=== PATIENT | female | born 1945 | race Caucasian/White ===

== ENCOUNTER 2020-12-27 13:29 | Emergency (ER) | payer MEDICARE, SELFPAY ==
[2020-12-27 13:44] VITALS: BP 131/73; PULSE 90; RESP 20; TEMP 37.2; O2SAT 98
--- NOTE | 2020-12-27 13:59 | ED.EYEPROB ---
HPI - Eye Problem General Chief complaint: Eye Problems Stated complaint: rt eye Time Seen by Provider: 12/27/20 13:59 Source: patient and RN notes reviewed Mode of arrival: ambulatory Limitations: no limitations History of Present Illness HPI Narrative: 75-year-old female presents to the [facility] with right eye concern. Patient states that she rubbed her eye about 2 hours ago and noticed that there broken capillaries in her eye. Denies any pain. No blurry vision or change in vision. No headaches. Recently changed from 3 mg to 4 mg of Coumadin. Related Data Home Medications Medication Instructions Recorded Confirmed diltiazem HCl 180 mg PO QAM 12/27/20 12/27/20 furosemide 40 mg PO DAILY 12/27/20 12/27/20 glipizide 2.5 mg PO QAM 12/27/20 12/27/20 glipizide 5 mg PO QPM 12/27/20 12/27/20 metoprolol succinate 12.5 mg PO DAILY 12/27/20 12/27/20 omeprazole 40 mg PO BID 12/27/20 12/27/20 primidone 50 mg PO BID 12/27/20 12/27/20 warfarin 4 mg PO DAILY 12/27/20 12/27/20 Allergies Allergy/AdvReac Type Severity Reaction Status Date / Time No Known Allergies Allergy Verified 12/27/20 14:08 Review of Systems Constitutional: Constitutional: Reports as per HPI Eyes: Eyes: Reports as per HPI, Denies change in vision and Denies photophobia Comments: Subconjunctival hemorrhage Denies any trauma ENT: Reports system reviewed and no additional complaints, except as documented Cardiovascular: Cardiovascular: Reports no additional cardiovascular complaints Respiratory: Respiratory: Reports no additional respiratory complaints Gastrointestinal: Gastrointestinal: Reports no additional gastrointestinal complaints Musculoskeletal: Musculoskeletal: Reports no additional musculoskeletal complaints Integumentary/Breasts: Skin/Breast: Reports system reviewed and no additional complaints, except as docu Neurologic: Reports system reviewed and no additional complaints, except as documented Psychiatric: Psychiatric: Reports no additional psychiatric complaints Allergic/Immunologic: Allergic/Immunologic: Reports no additional allergic/immunologic complaints [facility] Past Medical History Medical History (Updated 12/27/20 @ 19:39 by Tara Arellano) H/O gastroesophageal reflux (GERD) History of diabetes mellitus, type II Hypertension Irregular heartbeat Surgical History Surgical History (Updated 12/27/20 @ 19:39 by Tara Arellano) No significant past surgical history Comments At the time of my signature, I reviewed and agree with the nursing past medical, surgical, social, and family history. There is no relevant family history pertinent to the patient complaint. Exam Const: General: healthy appearing, no acute distress and alert Nutritional Appearance: well nourished Orientation/consciousness: patient oriented x3 Limitations: no limitations HENMT: Head: normal to inspection Eyes: Visual Harrison: normal visual harrison by confrontation Alignment and Position: alignment normal and position normal Eyelids: eyelids normal Conjunctivae: conjunctivae normal Cornea: corneas abnormal on the right other (Hemorrhage); without keratoconus opacity and without ulcerations Pupils: Equal, round and reactive pupils present EOM: EOMs intact bilaterally Direct Ophthalmoscopy: normal light reflex, no photophobia, No no papilledema, No increased light reflex and No photophobia Neck: Neck: normal visual inspection, no lymphadenopathy and no meningeal signs Chest: Chest palpation & inspection: normal inspection of the chest Resp: Effort & Inspection: normal respiratory effort and no use of accessory muscles Auscultation: clear to auscultation bilaterally, no crackles, no rales, no rhonchi and no wheezes Cardio: Rate: regular rate Rhythm: regular rhythm : General: Yes no CVA tenderness Back/Spine/Pelvis: Back: no CVA tenderness Skin: General skin exam: normal color Rashes: no rashes Wounds: no wounds Neuro: General: patient
== END 2020-12-27 14:25 | disposition home or self-care (01) ==
PROVIDERS: Emergency Provider Nurse Practitioner; PCP Internal Medicine
DX: H11.31 Conjunctival hemorrhage, right eye (principal); I10 Essential (primary) hypertension; E11.9 Type 2 diabetes mellitus without complications; Z79.01 Long term (current) use of anticoagulants
CPT/HCPCS: 99212; G0463